=== PATIENT | female | born 1955 | race Caucasian/White ===

== ENCOUNTER 2018-08-07 11:16 | Outpatient (CLI) | payer OTHER | END 2018-08-07 11:17 | disposition home or self-care (01) | LOC: BICMAMMO 11:16 | PROVIDERS: ATTEND Family Medicine | DX: Z12.31 Encounter for screening mammogram for malignant neoplasm of breast (principal); Z80.3 Family history of malignant neoplasm of breast | CPT/HCPCS: 77063; 77067 ==

== ENCOUNTER 2019-07-30 09:22 | Outpatient (CLI) | payer OTHER ==
--- NOTE | 2019-07-30 10:41 | MMO ---
Bilateral MAMMO Bilat Diag [facility]. CLINICAL HISTORY: Patient is 64 years old and is seen for diagnostic exam. The patient has the following family history of breast cancer: mother, at age 75. The patient has no personal history of cancer. VIEWS: The views performed were: bilateral craniocaudal with tomosynthesis; bilateral mediolateral oblique with tomosynthesis; and bilateral mediolateral with tomosynthesis. FILMS COMPARED: The present examination has been compared to prior imaging studies performed at [facility] [place] on 06/08/2016 and 07/21/2017, and at [facility] on 08/07/2018 and 07/30/2019. This study has been interpreted with the assistance of computer-aided detection. MAMMOGRAM FINDINGS: The breasts are heterogeneously dense, which could obscure a lesion on mammography. There are INCREASING calcifications seen in the sub-areolar region of the left breast. In the right breast, there are no suspicious masses, calcifications or areas of architectural distortion. IMPRESSION: CALCIFICATIONS IN THE LEFT BREAST ARE SUSPICIOUS. BIOPSY IS RECOMMENDED. stereotactic biopsy advised. With regard to bloody nipple discharge, follow up breast MRI could be performed if this remains a clinical concern. THE RESULTS OF THIS EXAM WERE SENT TO THE PATIENT. ACR BI-RADS Category 4 - Suspicious abnormality - biopsy should be considered MAMMOGRAPHY NOTE: 1. A negative mammogram report should not delay a biopsy if a dominant of clinically suspicious mass is present. 2. Approximately 10% to 15% of breast cancers are not detected by mammography. 3. Adenosis and dense breasts may obscure an underlying neoplasm. Reported by: PAUL BATES MD Electonically Signed: [id number]
--- NOTE | 2019-07-30 11:55 | ULT ---
FOCUSED ULTRASOUND OF THE LEFT RETROAREOLAR REGION: DATE: 07/30/2019. HISTORY: The patient reports a history of 2 episodes of small volume bloody nipple discharge. FINDINGS: Focused ultrasound in the left retroareolar region performed. No solid mass noted. There are a few mildly prominent/dilated ducts in the left retroareolar region with no associated mass lesion. IMPRESSION: 1. BIRADS 4- Suspicious abnormality. Biopsy advised. Biopsy is recommended for increasing microcalc ifications seen on mammography in the left areolar region. 2. With respect to the patient's history of bloody nipple discharge, no discrete finding to explain bloody nipple discharge is noted on mammography or ultrasound. Close clinical followup is advised. If bloody nipple discharge remains a clinical concern, a breast MRI is advised. The patient was made aware of the suspicious microcalcifications and recommendation for stereotactic biopsy at 10:15 a.m. 07/30/2019. CODE CR POS: OFF
== END 2019-07-30 09:23 | disposition home or self-care (01) ==
LOC: BICMAMMO 09:22
PROVIDERS: ATTEND Family Medicine
DX: N64.52 Nipple discharge (principal); R92.0 Mammographic microcalcification found on diagnostic imaging of breast
CPT/HCPCS: 77066; G0279

== ENCOUNTER → 2019-08-03 | Day surgery (SDC) | payer OTHER ==
--- NOTE | 2019-08-03 08:46 | MMO ---
EXAM: MAMMO Brst Bx Stereo PROVIDED CLINICAL HISTORY: Increasing number of calcifications retroareolar region left breast. Biopsy was recommended. COMPARISON: Diagnostic mammogram on 07/30/2019 TECHNIQUE: The procedure including the risks and complications were explained to the patient, and informed conse nt was obtained. The patient was placed on the stereotactic guided biopsy table in the prone position. Microcalcifications in the left breast were localized utilizing stereotactic guidance. An a mynor was meticulously prepped and draped in usual sterile fashion. The skin and subcutaneous tissues were infiltrated with buffered 1% lidocaine with epinephrine for lo christi anesthesia. A small skin incision was made. A 10-gauge stereotactic guided biopsy needle was advanced into the breast followed by stereotactic images. Calcifications were seen adjacent to the ti p of the needle. The needle was advanced followed by stereotactic images. Total of six 10-gauge core needle biopsy specimens were obtained. Specimen mammogram was performed demonstrating scattered microcalcifications within the provided specimens. As a result, a biopsy marker clip was then deployed. Follow-up left mammogram demonstrates biopsy marker clip in region of decreased number of m icrocalcifications in the retroareolar region left breast. Manual compression was applied to biopsy site. After hemostasis was achieved, a dry sterile dressing was placed. The patient tolerated the procedure well and without immediate complication. Biopsy results are currently pending. IMPRESSION: Technically successful stereotactic guided biopsy of left retroareolar breast microcalcifications.
--- NOTE | 2019-08-03 08:47 | MMO ---
EXAM: MAMMO Surgial Specimen PROVIDED CLINICAL HISTORY: Increasing number of left breast microcalcifications retroareolar region. Stereotactic guided breast biopsy was performed. COMPARISON: Stereotactic guided biopsy also obtained on this date. FINDINGS/IMPRESSION: Single provided specimen mammogram demonstrates multiple scattered calcifications within the provided core biopsy specimens.
--- NOTE | 2019-08-03 09:47 | MMO ---
EXAM: MAMMO Unilat Diag DDI LT PROVIDED CLINICAL HISTORY: Patient is post stereotactic guided biopsy of retroareolar left breast microcalcifications with biops y marker clip placement. COMPARISON: 07/30/2019 FINDINGS: There is a biopsy marker clip now seen in region of grouping of microcalcifications in the retroareol ar region left breast. There is evidence of a decrease in number of microcalcifications due to interval biopsy. IMPRESSION: Postbiopsy mammogram demonstrates biopsy marker clip at site of biopsy in region of left retroareolar breast microcalcifications. Pathology is currently pending.
== END ==
LOC: MAMMO 06:59
PROVIDERS: ATTEND Family Medicine
PROC: 0H9U3ZX Drainage of Left Breast, Percutaneous Approach, Diagnostic (ICD-10-PCS; principal; 2019-08-03)
DX: D05.12 Intraductal carcinoma in situ of left breast (principal); Z88.2 Allergy status to sulfonamides
CPT/HCPCS: 19081; 76098; 88305; 88341; 88342

== ENCOUNTER 2019-08-16 06:32 | Outpatient (CLI) | payer OTHER | END 2019-08-16 06:33 | disposition home or self-care (01) | LOC: LABBT 06:32 | PROVIDERS: ATTEND Surgery | DX: Z01.818 Encounter for other preprocedural examination (principal); D05.12 Intraductal carcinoma in situ of left breast | CPT/HCPCS: 93005; 93010 ==

== ENCOUNTER 2019-08-20 06:48 | Day surgery (SDC) | payer OTHER ==
[2019-08-16 09:50] VITALS: BMI 23.2
--- NOTE | 2019-08-20 08:18 | MMO ---
Mammographic guided needle localization left breast HISTORY: Left breast cancer. FINDINGS: After explaining the procedure and answering all questions, the localization clip within th e central aspect of the left breast was visualized. Sterile technique, buffered local anesthesia, mammographic guidance, and a lateral approach were used to carefully advance a 7.5 cm [place] needle im mediately deep to the localization clip and biopsy bed. Guidewire was placed to secure position. Final images were obtained. Patient tolerated the procedure well and was transferred to day surgery i n good condition. IMPRESSION: Technically successful needle localization left breast lesion.
[2019-08-20] MEDS ORDERED: PHENYLEPHRINE-NS 100 MCG/ML 10 ML SYRINGE ONE (09:31)
[2019-08-20] MEDS ORDERED: PROPOFOL 200 MG/20 ML VIAL ONE (09:31)
[2019-08-20] MEDS ORDERED: Dexamethasone 20 MG/5 ML VIAL ONE (09:31)
[2019-08-20] MEDS ORDERED: Lidocaine 1% PF 5 ML VIAL ONE (09:31)
[2019-08-20] MEDS ORDERED: Ketorolac Tromethamine 30 MG/ML VIAL ONE (09:31)
[2019-08-20] MEDS ORDERED: Ondansetron PF 4 MG/2 ML Vial ONE (09:31)
[2019-08-20] MEDS ORDERED: Fentanyl 100 MCG/2 ML VIAL ONE (10:20)
[2019-08-20] MEDS ORDERED: HYDROmorphone 0.5 MG/0.5 ML SYRINGE ONE (10:20)
[2019-08-20] MEDS ORDERED: Methylene Blue 50 MG/10 ML AMPUL ONE (11:56)
[2019-08-20] MEDS ORDERED: Lidocaine 1% w/Epinephrine 1:100K 20 ML VIAL ONE (11:56)
[2019-08-20] MEDS ORDERED: Bupivacaine 0.25% HCL 30 ML VIAL ONE (11:56)
--- NOTE | 2019-08-20 15:46 | MMO ---
Surgical specimen mammography HISTORY: Left breast cancer. FINDINGS: Mammographic evaluation of the surgical specimen obtained by Dr. Grant shows the metallic wire, localization clip, microcalcifications to overlie the soft tissue. Findings were called to Dr. Grant in the OR at the time the exam.
--- NOTE | 2019-08-21 09:06 | OP ---
DATE OF PROCEDURE: 08/20/2019 PREOPERATIVE DIAGNOSIS: Left breast ductal carcinoma in situ. POSTOPERATIVE DIAGNOSIS: Left breast ductal carcinoma in situ. PROCEDURE PERFORMED: Left breast lumpectomy after needle localization. ANESTHESIA: General. ESTIMATED BLOOD LOSS: Minimal. COMPLICATIONS: None. SPECIMEN: Left breast mass, marked with 2 short superior, one long lateral. Specimen x-ray reveals the clip to be in the specimen. TECHNIQUE: The patient taken to operating room and laid supine on the operating room table. After general anesthetic was obtained, the left breast was prepped and draped in a sterile fashion. A curved incision was made along the areolar edge in the left breast. Flaps were raised superiorly, medially, inferior laterally around the edge and needle localization wire. The patient had dark appearing fluid that could be manually milked out of an inferior lateral duct. A probe was placed down this duct into the subareolar tissues and this part of the subareolar nipple area was removed as well with the specimen. The specimen was marked with 2 short superior, one long lateral and sent to specimen x-ray of which revealed the clip to be in the specimen. It was then sent to Path for final diagnosis. The wound was irrigated. Local anesthetic was applied and the wound was closed using 3-0 Vicryl, 4-0 Monocryl, and Dermabond. The patient was sent to Recovery in stable condition. All instrument counts, needle counts and lap counts are correct. Job ID: [id number]
== END 2019-08-20 15:45 | disposition home or self-care (01) ==
LOC: SDC 06:48
PROVIDERS: ATTEND Surgery
PROC: 0HBU0ZZ Excision of Left Breast, Open Approach (ICD-10-PCS; principal; 2019-08-20)
DX: D05.12 Intraductal carcinoma in situ of left breast (principal); I10 Essential (primary) hypertension; Z79.899 Other long term (current) drug therapy; Z88.2 Allergy status to sulfonamides
CPT/HCPCS: 19281; 76098; 88307; J0690; J1100; J1170; J1885; J2001; J2405; J2704; J3010; Q9968; S0020

== ENCOUNTER 2019-12-26 09:48 | Outpatient (CLI) | payer OTHER ==
--- NOTE | 2019-12-26 10:06 | BD ---
EXAM: DEXA bone density examination HISTORY: 64-year-old postmenopausal female for screening COMPARISON: None FINDINGS: L1--bone mineral density 0.910 g/sq cm; T score -0.7 L2--bone mineral density 0.867 g/sq cm; T score -1.5 L3--bone mineral density 0.977 g/sq cm; T score -1.0 L4--bone mineral density 0.903 g/sq cm; T score -1.4 Total L1-L4--bone mineral density 0.914 g/sq cm; T score -1.2 Left femoral neck--bone mineral density0.651; T score -1.8 Total proximal left femur--bone mineral density 0.742; T score -1.6 IMPRESSION: Osteopenia. This patient has a 10 year WHO fracture risk of a major osteoporotic fracture of 17% and of a hip fracture of 1.1%.
== END 2019-12-26 09:49 | disposition home or self-care (01) ==
LOC: BICMAMMO 09:48
PROVIDERS: ATTEND Internal Medicine Hematology & Oncology
DX: Z13.820 Encounter for screening for osteoporosis (principal); C50.112 Malignant neoplasm of central portion of left female breast; M85.89 Other specified disorders of bone density and structure, multiple sites; Z78.0 Asymptomatic menopausal state
CPT/HCPCS: 77080

== ENCOUNTER 2020-07-31 10:20 | Outpatient (CLI) | payer OTHER | END 2020-07-31 10:21 | disposition home or self-care (01) | LOC: BICMAMMO 10:20 | PROVIDERS: ATTEND Internal Medicine Hematology & Oncology | DX: Z08 Encounter for follow-up examination after completed treatment for malignant neoplasm (principal); Z85.3 Personal history of malignant neoplasm of breast | CPT/HCPCS: 77066; G0279 ==

== ENCOUNTER 2020-12-23 08:14 | Day surgery (SDC) | payer OTHER ==
[~2020-12-23 08:14] MED LIST: EPINEPHrine 0.3 MG in Ophthalmic Irrigation Solution 500 ML IRR SCH; Fentanyl 100 MCG/2 ML VIAL ONE; Heparin 10,000 UNITS/1 ML VIAL 30,000 UNITS in Sodium Chloride 0.9% 1,000 ML FS SCH; Midazolam HCl 2 mg/2 ml Vial ONE
[2020-12-23] MEDS ORDERED: Cyclopentolate 1% Opth Drop 2 ML BOT ONE (08:54)
[2020-12-23] MEDS ORDERED: Phenylephrine 2.5% Ophth Soln 5 ML BOT ONE (08:54)
[2020-12-23] MEDS ORDERED: Triamcinolone 40 MG/ML VIAL ONE (09:59)
[2020-12-23] MEDS ORDERED: CEFAZOLIN 1 GM VIAL ONE (09:59)
[2020-12-23] MEDS ORDERED: Bupivacaine PF 0.75% SDV 10 ML ONE (09:59)
[2020-12-23] MEDS ORDERED: Indocyanine Green 25 MG/10 ML VIAL ONE (09:59)
[2020-12-23] MEDS ORDERED: Maxitrol 0.1% Opth Oint 3.5 GM TUBE ONE (09:59)
[2020-12-23] MEDS ORDERED: Lidocaine 4% PF 5 ML AMP ONE (09:59)
[2020-12-23] MEDS ORDERED: Lidocaine 1% PF 5 ML VIAL ONE (09:59)
[2020-12-23] MEDS ORDERED: PROPOFOL 200 MG/20 ML VIAL ONE (09:59)
== END 2020-12-23 11:24 | disposition home or self-care (01) ==
LOC: SDC 08:14
PROVIDERS: ATTEND Ophthalmology Retina Specialist
PROC: 08T43ZZ Resection of Right Vitreous, Percutaneous Approach (ICD-10-PCS; principal; 2020-12-23)
PROC: 08NE3ZZ Release Right Retina, Percutaneous Approach (ICD-10-PCS; principal; 2020-12-23)
DX: H35.341 Macular cyst, hole, or pseudohole, right eye (principal); Z79.899 Other long term (current) drug therapy; Z88.2 Allergy status to sulfonamides
CPT/HCPCS: 67025; J0171; J0690; J1644; J2250; J2704; J3010; J3301; J3490; J7050

== ENCOUNTER 2021-08-27 10:18 | Outpatient (CLI) | payer MEDICARE, OTHER | END 2021-08-27 10:19 | disposition home or self-care (01) | LOC: BICMAMMO 10:18 | PROVIDERS: ATTEND Internal Medicine Hematology & Oncology | DX: Z08 Encounter for follow-up examination after completed treatment for malignant neoplasm (principal); Z13.820 Encounter for screening for osteoporosis; M85.89 Other specified disorders of bone density and structure, multiple sites; Z78.0 Asymptomatic menopausal state | CPT/HCPCS: 77066; 77080; G0279 ==

== ENCOUNTER 2022-09-09 10:17 | Outpatient (CLI) | payer MEDICARE, OTHER | END 2022-09-09 10:18 | disposition home or self-care (01) | LOC: BICMAMMO 10:17 | PROVIDERS: ATTEND Internal Medicine Hematology & Oncology | DX: Z08 Encounter for follow-up examination after completed treatment for malignant neoplasm (principal); Z85.3 Personal history of malignant neoplasm of breast | CPT/HCPCS: 77066; G0279 ==